=== PATIENT | male | born 1990 | race Caucasian/White ===

== ENCOUNTER 2023-07-11 10:26 | Emergency (ER) | payer SELFPAY ==
[2023-07-11 10:34] VITALS: BP 154/128
[2023-07-11] MEDS: ATIVAN 1 MG IM (10:50)
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
[2023-07-11 11:00] VITALS: BP 150/87
[2023-07-11 11:05] LABS: % Basophils 0.4 % (0-2); % Eosinophils 0.1 % (0-6); % Immature Granulocytes 0.5 % (0-0.5); % Lymphocytes 18.2 % (20.5-51.1); % Monocytes 9.4 % (1.7-9.3); % Neutrophils 71.4 % (42.2-75.2); Absolute Immature Granulocytes 0.1 10^3/uL (0-0.05); Absolute Lymphocytes 1.8 10^3/uL (1.2-3.4); Absolute Monocytes 0.9 10^3/uL (0.1-0.6); Absolute Neutrophils 6.9 10^3/uL (1.4-6.5); Hemoglobin 15.8 g/dL (13.0-18.0); Mean Corp Hgb Conc. 36.7 g/dL (33.0-37.0); Mean Corpuscular Hgb 32.8 pg (27.0-31.0); Mean Corpuscular Volume 89.4 fL (80.0-94.0); Mean Platelet Volume 10.8 fL (7.4-10.4); Nucleated Red Blood Cells % 0 % (-); Platelet Count 183 10^3/uL (130-400); Red Blood Cell Count 4.81 10^6/uL (4.70-6.10); Red Cell Dist. Width 12.7 % (11.5-14.5); White Blood Cell Count 9.7 10^3/uL (4.8-10.8)
[2023-07-11 11:15] LABS: ALT (SGPT) 59 U/L (0-50); AST (SGOT) 55 U/L (17-59); Acetaminophen < 10 ug/ml (10-30); Albumin 5.1 g/dl (3.5-5.0); Alkaline Phosphatase 103 U/L (38-126); Blood Urea Nitrogen 12 mg/dl (9-20); Calcium 10.3 mg/dl (8.4-10.2); Carbon Dioxide 17 mmol/L (22-30); Chloride 103 mmol/L (98-107); Glucose 99 mg/dl (70-99); Potassium 4.1 mmol/L (3.5-5.1); Salicylate < 1.0 mg/dl (2.0-20.0); Sodium 138 mmol/L (135-145); Total Bilirubin 1.2 mg/dl (0.2-1.3); eGFR > 60.00
[2023-07-11 11:21] LABS: Alcohol None Detected
[2023-07-11 12:00] VITALS: BP 111/62
[2023-07-11 12:35] VITALS: BP 111/62
== END 2023-07-11 13:04 ==
LOC: EMR 10:26
PROVIDERS: EMERGENCY PHYSICIAN Emergency Medicine
DX: F32.A Depression, unspecified (principal); R45.851 Suicidal ideations; R45.1 Restlessness and agitation; F10.20 Alcohol dependence, uncomplicated
CPT/HCPCS: 99284; 96372; 80053; 80143; 80179; 82077; 85025